=== PATIENT | male | born 1950 | race Caucasian/White ===

== ENCOUNTER → 2016-10-09 | Outpatient (CLI) | payer OTHER, BC ==
[2010-09-18 20:39] VITALS: BP 148/79
== END ==
LOC: MMPC 11:11
PROVIDERS: ATTEND Surgery
DX: E11.9 Type 2 diabetes mellitus without complications (principal); I10 Essential (primary) hypertension; E78.5 Hyperlipidemia, unspecified; Z12.11 Encounter for screening for malignant neoplasm of colon
CPT/HCPCS: 99202; G0463

== ENCOUNTER 2016-10-17 07:52 | Day surgery (SDC) | payer OTHER, BC ==
[2016-10-17] MEDS ORDERED: LIDOCAINE W/ SODIUM BICARB 0.5 ML SYR ONE (08:35)
[2016-10-17] MEDS ORDERED: Lactated Ringers 1,000 ML PRIMARY IV ONE (08:35)
--- NOTE | 2016-10-17 09:31 | GEN.OPNOTE ---
Colonoscopy Procedure Note Surgery Date: 10/17/16 Preoperative Diagnosis: Colon cancer screening. Postoperative Diagnosis: Colon cancer screening. Normal colonoscopy. Procedure: Complete colonoscopy. Surgeon: Maninder Brown MD Anesthesia Provider: Flower Ayala CRNA Anesthesia Type: MAC Indications: Colon cancer screening for colon cancer prevention and/or early detection. Findings: Prep : [Excellent] Cecum : [Normal] Ascending : [Normal] Transverse : [Normal] Sigmoid : [Normal] Rectum : [Normal] Digital Rectal Exam : [Some excess skin. A perianal papillae. Prostate of normal size and consistency.] A lubricated flexible colonoscope was inserted and passed to the blind end of the cecum. The appendiceal orifice and ileocecal valve were clearly seen. Air was aspirated as the scope was withdrawn. The entire colonoscopy was normal without polyp, tumor, neoplastic mass, infectious or inflammatory process. The scope was withdrawn completing the procedure. Patient tolerated the procedure well without complication. He was taken to outpatient surgery in stable condition. Follow-up will be with my office on an as-needed basis. It is recommended he undergo follow-up colonoscopy in 10 years time
[2016-10-17 10:48] VITALS: RESP 16
[2016-10-17 10:49] VITALS: TEMP 97.8
== END 2016-10-17 10:02 | disposition home or self-care (01) ==
LOC: MSOP 07:52
PROVIDERS: ATTEND Surgery
DX: Z12.11 Encounter for screening for malignant neoplasm of colon (principal)
CPT/HCPCS: 00810; G0121 ×2; J2704; J7120